=== PATIENT | female | born 1990 | race Caucasian/White ===

== ENCOUNTER 2017-12-22 02:20 | Emergency (ER) | payer OTHER ==
--- NOTE | 2017-12-22 03:25 | EDPHY ---
H & P Stated Complaint: ETOH TRIPPED AND FELL, LAC R EYEBROW Time Seen by Provider: 12/22/17 02:23 HPI/ROS: HPI: The patient presents brought in by ambulance for fall with alcohol intoxication. Patient was out with her boyfriend who is here with her. They were walking to cross the street and she tripped in between the grass and the sidewalk. She fell forward and landed on her forehead. She did not lose consciousness. She has not had any vomiting, vision changes, weakness of her arms or legs. Her boyfriend witnessed the event. She is brought in by ambulance after sustaining a forehead laceration. REVIEW OF SYSTEMS Constitutional: No fever, no chills. Eyes: No discharge. ENT: No sore throat. Cardiovascular: No chest pain, no palpitations. Respiratory: No cough, no shortness of breath. Gastrointestinal: No abdominal pain, no vomiting. Genitourinary: No hematuria. Musculoskeletal: No back pain. Skin: No rashes. Neurological: No headache. PMHx: Healthy TRAUMA PHYSICAL General Appearance: Alert, mildly intoxicated Head: Right forehead above the eyebrow there is an oblique 3 cm laceration which is slightly gaping, she has full range of motion of the front talus muscle Eyes: Pupils equal, round, reactive ENT, Mouth: No hemotypanium, no oral trauma Neck: Non- tender, trachea midline Respiratory: Breathing comfortably Skin: Abrasion to left knee Extremities: Non-tender, full range of motion Neurological: A&Ox3, GCS=15,normal motor function with 5/5 strength in all 4 extremities, normal sensory exam Source: Patient Exam Limitations: No limitations - Personal History Current Tetanus/Diphtheria Vaccine: Yes Current Tetanus Diphtheria and Acellular Pertussis (TDAP): Yes - Medical/Surgical History Hx Asthma: No Hx Chronic Respiratory Disease: No Hx Diabetes: No Hx Cardiac Disease: No Hx Renal Disease: No Hx Cirrhosis: No Hx Alcoholism: No Hx HIV/AIDS: No Hx Splenectomy or Spleen Trauma: No Other PMH: DENIES - Social History Smoking Status: Never smoked Constitutional: Initial Vital Signs Temperature (C) 36.8 C 12/22/17 02:20 Heart Rate 104 H 12/22/17 02:20 Respiratory Rate 18 12/22/17 02:20 Blood Pressure 123/67 H 12/22/17 02:20 O2 Sat (%) 97 12/22/17 02:20 O2 Delivery Mode Room Air Allergies/Adverse Reactions: No Known Allergies Allergy (Unverified 12/22/17 03:00) Home Medications: Medication Instructions Recorded NK [No Known Home Meds] 12/22/17 Medical Decision Making Procedures: LACERATION REPAIR Procedure: Laceration repair. Verbal consent was obtained from the patient. The linear 4 cm laceration on the right forehead was anesthetized using bupivacaine with epinephrine. The wound was scrubbed, draped and explored to its base with a gloved finger. There were no deep structures involved. No tendon injury was identified. . The wound was repaired with a combination of deep dermal and superficial sutures, deep dermal were performed with 5-0 Vicryl simple interrupted, superficial were combination of horizontal mattress and simple interrupted 5-0 Prolene. The wound repair was complex. The procedure was performed by myself. Differential Diagnosis: This is a 27-year-old female who is brought in by ambulance with her boyfriend after a fall which occurred just prior to arrival. This is in the setting of alcohol intoxication. Patient's boyfriend witnessed the fall, she tripped and fell forward landing on her head. She did not lose consciousness. She does not meet criteria for CT scan of her head by nexus 2 criteria. She does have a laceration above her eyebrow which will require repair. In the emergency department, suturing was performed by myself. She was given precautions about wound care and management. I have referred her to plastic surgeon in the case that her wound does not heal the way she would like it 2. She is in agreement with this plan. She is able to walk with a steady gait and is discharged home. Departure - Departure Disposition: Home, Routine, Self-Care Clinical Impression: Laceration of forehead, Alcoholic intoxication, Fall Condition: Good Instructions: Care For Your Stitches (ED), Laceration (ED) Additional Instructions: Your stitches should be removed in 5 days. You can come to the emergency department for this or see your primary care doctor. Referrals: Bronwyn Glynn JR, MD [Medical Doctor] - As per Instructions
[2017-12-22] MEDS ORDERED: KETOROLAC 15 MG/1 ML SDV IVP ONE (03:34)
[2017-12-22 04:31] VITALS: BP 129/87
== END 2017-12-22 04:30 | disposition home or self-care (01) ==
PROC: 0HQ1XZZ Repair Face Skin, External Approach (ICD-10-PCS; principal; 2017-12-22)
DX: S01.81XA Laceration without foreign body of other part of head, initial encounter (principal); F10.129 Alcohol abuse with intoxication, unspecified; W01.0XXA Fall on same level from slipping, tripping and stumbling without subsequent striking against object, initial encounter; Y92.410 Unspecified street and highway as the place of occurrence of the external cause; Y99.8 Other external cause status; Y93.01 Activity, walking, marching and hiking